=== PATIENT | female | born 1930 | race Caucasian/White ===

== ENCOUNTER 2017-05-08 11:39 | Emergency (ER) | payer OTHER ==
[~2017-05-08] VITALS: Ht 175.3 cm; Wt 90.0 kg
[~2017-05-08 11:39] MED LIST: ABILIFY2 MG PO; ARIPIPRAZOLE2 MG PO; AUGMENTIN875 MG PO; CEFTIN500 MG PO; CIPRO500 MG PO; CLEOCIN300 MG PO; COLACE100 MG PO; COREG3.125 M1 PO; DULCOLAX5 MG PO; FISH OIL300 MG PO; FLEET ENEMA-AD118 ML PR; GLIPIZIDE10 M1 PO; LASIX20 MG PO; LASIX40 MG PO; LIPITOR10 MG PO; LIPITOR20 MG PO; METFORMIN HCL500 MG PO; MICRO-K,K-DUR,10 MEQ PO; MIRALAX17 GM PO; MIRALAX255 GM PO; OMEGA 3 1,0001 EACH PO; PAROXETINE HC37.5 MG PO; PAROXETINE HCL25 MG PO; PAXIL CR12.5 MG PO; PAXIL CR25 MG PO; PERCOCET 5/31 TABLET PO; PRADAXA150 MG PO; PROMETHAZINE HC25 M1 PO; STOOL SOFTENER1 EAC1 PO; TRAMADOL HCL50 MG PO; XARELTO15 MG PO; ZESTRIL,PRINIVI40 MG PO; ZOFRAN4 MG PO
[2017-05-08 13:26] LABS: BASOPHIL (%) 0.1 % (0-1); EOSINOPHIL (%) 0.6 % (0-5); HEMATOCRIT 34.2 % (36.0-46.0); HEMOGLOBIN 10.3 G/DL (11.9-15.5); IMMATURE GRANULOCYTE (%) 0.4 % (0.0-0.7); LYMPHOCYTE (%) 5.3 % (15-42); LYMPHOCYTE COUNT 0.4 K/uL (1.0-2.8); MCH 23.7 PG (29.0-34.0); MCHC 30.1 G/DL (30.0-36.0); MCV 78.6 FL (83-99); MONOCYTE (%) 4.9 % (3-12); MONOCYTE COUNT 0.4 K/uL (0-0.8); NEUTROPHIL (%) 88.7 % (45-76); NEUTROPHIL COUNT 6.3 K/uL (1.8-6.4); PLATELET COUNT 152 K/uL (156-360); RBC DIS.WIDTH-CV 18.1 % (11.8-14.6); RBC DIS.WIDTH-SD 51.2 % (39-53); RED BLOOD COUNT 4.35 M/uL (3.80-5.20); WHITE BLOOD COUNT 7.2 K/uL (4.1-10.2)
[2017-05-08 13:39] LABS: CHLORIDE 102 mEq/L (99-109); POTASSIUM 3.7 mEq/L (3.7-5.4); SODIUM 138 mEq/L (136-147)
[2017-05-08 13:40] LABS: GLUCOSE 122 mg/dL (70-99)
[2017-05-08 13:44] LABS: CREATININE 0.8 mg/dL (0.6-1.3); GFR ESTIMATE (CALCULATED) > 59 mL/min/
[2017-05-08 13:45] LABS: UREA NITROGEN (BUN) 14 mg/dL (9-23)
[2017-05-08 13:58] LABS: APPEARANCE CLEAR ((CLEAR)); BILIRUBIN NEGATIVE; BLOOD NEGATIVE; COLOR YELLOW ((YELLOW)); GLUCOSE (STRIP) NEGATIVE; KETONES NEGATIVE; LEUKOCYTES NEGATIVE; NITRITE NEGATIVE; PROTEIN (STRIP) NEGATIVE; SPECIFIC GRAVITY 1.008 (1.000-1.030)
[2017-05-08 14:29] VITALS: BP 105/67
== END 2017-05-08 14:32 | disposition home or self-care (01) ==
LOC: EME 11:39
PROVIDERS: Emergency Medicine
DX: S30.0XXA Contusion of lower back and pelvis, initial encounter (principal); W18.2XXA Fall in (into) shower or empty bathtub, initial encounter; Y92.002 Bathroom of unspecified non-institutional (private) residence as the place of occurrence of the external cause; M54.2 Cervicalgia; F03.90 Unspecified dementia, unspecified severity, without behavioral disturbance, psychotic disturbance, mood disturbance, and anxiety; E11.9 Type 2 diabetes mellitus without complications; Z79.84 Long term (current) use of oral hypoglycemic drugs; E78.5 Hyperlipidemia, unspecified; I10 Essential (primary) hypertension; F32.9 Major depressive disorder, single episode, unspecified; K21.9 Gastro-esophageal reflux disease without esophagitis; Z95.2 Presence of prosthetic heart valve; Z86.718 Personal history of other venous thrombosis and embolism
CPT/HCPCS: 70450; 71045; 72125; 72131; 80048; 81003; 85025; 93005; 99281; 99285

== ENCOUNTER 2017-06-22 10:56 | Emergency (ER) | payer OTHER ==
[~2017-06-22] VITALS: Ht 154.9 cm; Wt 93.1 kg
[2017-06-22 12:00] LABS: APPEARANCE CLEAR ((CLEAR)); BILIRUBIN NEGATIVE; BLOOD NEGATIVE; COLOR STRAW ((YELLOW)); GLUCOSE (STRIP) NEGATIVE; KETONES NEGATIVE; LEUKOCYTES NEGATIVE; NITRITE NEGATIVE; PROTEIN (STRIP) NEGATIVE; SPECIFIC GRAVITY 1.006 (1.000-1.030); UCUL ADDED? NO; UROBILINOGEN 0.2 MG/DL (0.2-1.0)
[2017-06-22 12:06] LABS: BASOPHIL (%) 0.2 % (0-1); EOSINOPHIL (%) 1.4 % (0-5); EOSINOPHIL COUNT 0.1 K/uL (0-0.3); HEMATOCRIT 34.4 % (36.0-46.0); HEMOGLOBIN 10.5 G/DL (11.9-15.5); IMMATURE GRANULOCYTE (%) 0.4 % (0.0-0.7); LYMPHOCYTE (%) 11.4 % (15-42); LYMPHOCYTE COUNT 0.6 K/uL (1.0-2.8); MCHC 30.5 G/DL (30.0-36.0); MCV 78.5 FL (83-99); MONOCYTE (%) 6.2 % (3-12); MONOCYTE COUNT 0.3 K/uL (0-0.8); NEUTROPHIL (%) 80.4 % (45-76); NEUTROPHIL COUNT 4.2 K/uL (1.8-6.4); PLATELET COUNT 150 K/uL (156-360); RBC DIS.WIDTH-CV 18.4 % (11.8-14.6); RBC DIS.WIDTH-SD 52.1 % (39-53); RED BLOOD COUNT 4.38 M/uL (3.80-5.20); WHITE BLOOD COUNT 5.2 K/uL (4.1-10.2)
[2017-06-22 12:17] LABS: CHLORIDE 100 mEq/L (99-109); POTASSIUM 3.7 mEq/L (3.7-5.4); SODIUM 139 mEq/L (136-147)
[2017-06-22 12:19] LABS: GLUCOSE 112 mg/dL (70-99)
[2017-06-22 12:20] LABS: TOTAL PROTEIN 6.6 g/dL (6.4-8.3)
[2017-06-22 12:21] LABS: TOTAL BILIRUBIN 1.3 mg/dL (0.0-1.0)
[2017-06-22 12:23] LABS: ALKALINE PHOSPHATASE 99 IU/L (3-129); CREATININE 0.8 mg/dL (0.6-1.3); GFR ESTIMATE (CALCULATED) > 59 mL/min/
[2017-06-22 12:24] LABS: UREA NITROGEN (BUN) 16 mg/dL (9-23)
[2017-06-22 12:25] LABS: AST (GOT) 20 IU/L (2-34)
[2017-06-22 12:26] LABS: ALT (GPT) 13 IU/L (3-49)
[2017-06-22 12:27] LABS: TROP-I INTERPRETATION NEGATIVE; TROPONIN-I 0.01 ng/mL (0.0-0.30)
[2017-06-22 16:37] VITALS: BP 131/57
== END 2017-06-22 16:38 | disposition home or self-care (01) ==
LOC: EME 10:56
PROVIDERS: Emergency Medicine
DX: R53.1 Weakness (principal); F32.9 Major depressive disorder, single episode, unspecified; F03.90 Unspecified dementia, unspecified severity, without behavioral disturbance, psychotic disturbance, mood disturbance, and anxiety; R35.0 Frequency of micturition; I51.7 Cardiomegaly; I48.91 Unspecified atrial fibrillation; I10 Essential (primary) hypertension; E78.5 Hyperlipidemia, unspecified; E11.9 Type 2 diabetes mellitus without complications; Z79.84 Long term (current) use of oral hypoglycemic drugs; Z95.2 Presence of prosthetic heart valve; Z86.711 Personal history of pulmonary embolism
CPT/HCPCS: 70450; 71046; 80053; 81003; 84484; 85025; 90839; 93005; 99281; 99285

== ENCOUNTER 2017-06-28 11:19 | Emergency (ER) | payer OTHER ==
[~2017-06-28] VITALS: Ht 165.1 cm; Wt 89.0 kg
[2017-06-28 12:08] LABS: BASOPHIL (%) 0.2 % (0-1); EOSINOPHIL (%) 1.2 % (0-5); EOSINOPHIL COUNT 0.1 K/uL (0-0.3); HEMATOCRIT 37.2 % (36.0-46.0); HEMOGLOBIN 11.5 G/DL (11.9-15.5); IMMATURE GRANULOCYTE (%) 0.3 % (0.0-0.7); LYMPHOCYTE (%) 9.7 % (15-42); LYMPHOCYTE COUNT 0.6 K/uL (1.0-2.8); MCH 23.9 PG (29.0-34.0); MCHC 30.9 G/DL (30.0-36.0); MCV 77.2 FL (83-99); MONOCYTE (%) 6.7 % (3-12); MONOCYTE COUNT 0.4 K/uL (0-0.8); NEUTROPHIL (%) 81.9 % (45-76); NEUTROPHIL COUNT 4.8 K/uL (1.8-6.4); PLATELET COUNT 169 K/uL (156-360); RBC DIS.WIDTH-CV 18.3 % (11.8-14.6); RBC DIS.WIDTH-SD 50.3 % (39-53); RED BLOOD COUNT 4.82 M/uL (3.80-5.20); WHITE BLOOD COUNT 5.8 K/uL (4.1-10.2)
[2017-06-28 12:16] LABS: ALBUMIN 4.2 g/dL (3.2-4.8); CHLORIDE 96 mEq/L (99-109); POTASSIUM 3.3 mEq/L (3.7-5.4); SODIUM 139 mEq/L (136-147)
[2017-06-28 12:17] LABS: MAGNESIUM 2.1 mg/dL (1.3-2.7)
[2017-06-28 12:18] LABS: GLUCOSE 112 mg/dL (70-99); INTER. NORMALIZED RATIO 1.2; TOTAL PROTEIN 6.9 g/dL (6.4-8.3)
[2017-06-28 12:20] LABS: TOTAL BILIRUBIN 1.4 mg/dL (0.0-1.0)
[2017-06-28 12:21] LABS: PTT 28.7 SEC (25-37)
[2017-06-28 12:22] LABS: ALKALINE PHOSPHATASE 96 IU/L (3-129); CREATININE 0.8 mg/dL (0.6-1.3); GFR ESTIMATE (CALCULATED) > 59 mL/min/
[2017-06-28 12:23] LABS: UREA NITROGEN (BUN) 20 mg/dL (9-23)
[2017-06-28 12:28] LABS: TROP-I INTERPRETATION NEGATIVE; TROPONIN-I 0.03 ng/mL (0.0-0.30)
[2017-06-28 12:30] LABS: ALT (GPT) 13 IU/L (3-49); AST (GOT) 22 IU/L (2-34)
[2017-06-28 13:35] LABS: APPEARANCE CLOUDY ((CLEAR)); BILIRUBIN NEGATIVE; BLOOD NEGATIVE; COLOR YELLOW ((YELLOW)); GLUCOSE (STRIP) NEGATIVE; KETONES NEGATIVE; LEUKOCYTES NEGATIVE; NITRITE NEGATIVE; PROTEIN (STRIP) NEGATIVE; SPECIFIC GRAVITY 1.011 (1.000-1.030); UROBILINOGEN 0.2 MG/DL (0.2-1.0)
[2017-06-28 13:48] LABS: THYROTROPIN (TSH) 2.9 MIU/L (0.4-5.5)
[2017-06-28 14:20] LABS: BACTERIA 2+ /HPF; EPITHELIAL CELLS 3+ /HPF; MUCUS NONE SEEN /LPF; RED BLOOD CELLS RARE /HPF (0-5); UCUL ADDED? YES
[2017-06-28 18:18] VITALS: BP 141/77
== END 2017-06-28 18:52 | disposition home or self-care (01) ==
LOC: EME 11:19
PROVIDERS: Emergency Medicine
DX: G30.9 Alzheimer's disease, unspecified (principal); F02.80 Dementia in other diseases classified elsewhere, unspecified severity, without behavioral disturbance, psychotic disturbance, mood disturbance, and anxiety; I48.91 Unspecified atrial fibrillation; I45.4 Nonspecific intraventricular block; R94.31 Abnormal electrocardiogram [ECG] [EKG]; E11.9 Type 2 diabetes mellitus without complications; I10 Essential (primary) hypertension; E78.5 Hyperlipidemia, unspecified; K21.9 Gastro-esophageal reflux disease without esophagitis; F32.9 Major depressive disorder, single episode, unspecified; Z79.84 Long term (current) use of oral hypoglycemic drugs; Z86.718 Personal history of other venous thrombosis and embolism; Z95.2 Presence of prosthetic heart valve; Z88.6 Allergy status to analgesic agent
CPT/HCPCS: 70450; 71045; 80053; 81003; 83735; 84439; 84443; 84484; 85025; 85610; 85730; 87086; 90832; 93005; 99281; 99285

== ENCOUNTER 2017-07-13 06:58 | Emergency (ER) | payer OTHER ==
[~2017-07-13] VITALS: Ht 165.1 cm; Wt 88.0 kg
[2017-07-13 07:28] LABS: HEMATOCRIT 35.1 % (36.0-46.0); MCH 24.6 PG (29.0-34.0); MCHC 31.3 G/DL (30.0-36.0); MCV 78.3 FL (83-99); PLATELET COUNT 139 K/uL (156-360); RBC DIS.WIDTH-CV 18.1 % (11.8-14.6); RBC DIS.WIDTH-SD 50.4 % (39-53); RED BLOOD COUNT 4.48 M/uL (3.80-5.20); WHITE BLOOD COUNT 5.3 K/uL (4.1-10.2)
[2017-07-13 07:57] LABS: CHLORIDE 98 MEQ/L (99-109); CREATININE 0.7 MG/DL (0.6-1.3); GFR ESTIMATE (CALCULATED) > 59 mL/min/; GLUCOSE 167 mg/dL (70-99); POTASSIUM 3.5 MEQ/L (3.7-5.4); SODIUM 139 MEQ/L (136-147); UREA NITROGEN (BUN) 13 mg/dL (9-23)
[2017-07-13 09:01] LABS: APPEARANCE CLEAR ((CLEAR)); BILIRUBIN NEGATIVE; BLOOD NEGATIVE; COLOR YELLOW ((YELLOW)); GLUCOSE (STRIP) NEGATIVE; KETONES NEGATIVE; LEUKOCYTES NEGATIVE; NITRITE NEGATIVE; PROTEIN (STRIP) NEGATIVE; SPECIFIC GRAVITY 1.018 (1.000-1.030); UCUL ADDED? NO
[2017-07-13 12:25] VITALS: BP 147/83
== END 2017-07-13 12:25 | disposition home or self-care (01) ==
LOC: EME 06:58
PROVIDERS: Emergency Medicine
DX: F03.90 Unspecified dementia, unspecified severity, without behavioral disturbance, psychotic disturbance, mood disturbance, and anxiety (principal); L89.92 Pressure ulcer of unspecified site, stage 2; E11.65 Type 2 diabetes mellitus with hyperglycemia; K62.89 Other specified diseases of anus and rectum; R10.9 Unspecified abdominal pain; G89.29 Other chronic pain; I10 Essential (primary) hypertension; E78.5 Hyperlipidemia, unspecified; Z95.2 Presence of prosthetic heart valve; Z86.718 Personal history of other venous thrombosis and embolism; Z79.84 Long term (current) use of oral hypoglycemic drugs
CPT/HCPCS: 74019; 80048; 81003; 85027; 99281; 99284

== ENCOUNTER 2017-07-24 09:03 | Emergency (ER) | payer OTHER ==
[~2017-07-24] VITALS: Ht 162.6 cm; Wt 91.2 kg
[2017-07-24 10:15] LABS: BASOPHIL (%) 0.2 % (0-1); EOSINOPHIL (%) 2.2 % (0-5); EOSINOPHIL COUNT 0.1 K/uL (0-0.3); HEMATOCRIT 34.2 % (36.0-46.0); HEMOGLOBIN 10.8 G/DL (11.9-15.5); IMMATURE GRANULOCYTE (%) 0.5 % (0.0-0.7); LYMPHOCYTE (%) 12.8 % (15-42); LYMPHOCYTE COUNT 0.5 K/uL (1.0-2.8); MCH 24.9 PG (29.0-34.0); MCHC 31.6 G/DL (30.0-36.0); MONOCYTE (%) 5.2 % (3-12); MONOCYTE COUNT 0.2 K/uL (0-0.8); NEUTROPHIL (%) 79.1 % (45-76); NEUTROPHIL COUNT 3.2 K/uL (1.8-6.4); PLATELET COUNT 149 K/uL (156-360); RBC DIS.WIDTH-CV 18.6 % (11.8-14.6); RBC DIS.WIDTH-SD 53.4 % (39-53); RED BLOOD COUNT 4.33 M/uL (3.80-5.20); WHITE BLOOD COUNT 4.1 K/uL (4.1-10.2)
[2017-07-24 10:24] LABS: CHLORIDE 100 mEq/L (99-109); POTASSIUM 4.3 mEq/L (3.7-5.4); SODIUM 137 mEq/L (136-147)
[2017-07-24 10:26] LABS: GLUCOSE 174 mg/dL (70-99)
[2017-07-24 10:30] LABS: CREATININE 0.7 mg/dL (0.6-1.3); GFR ESTIMATE (CALCULATED) > 59 mL/min/
[2017-07-24 10:31] LABS: UREA NITROGEN (BUN) 7 mg/dL (9-23)
[2017-07-24] MEDS ORDERED: MIRALAX17 GM PO (12:16)
[2017-07-24 14:03] VITALS: BP 132/53
== END 2017-07-24 14:04 | disposition home or self-care (01) ==
LOC: EME 09:03
PROVIDERS: Emergency Medicine
DX: K59.00 Constipation, unspecified (principal); E11.9 Type 2 diabetes mellitus without complications; I10 Essential (primary) hypertension; K21.9 Gastro-esophageal reflux disease without esophagitis; E78.5 Hyperlipidemia, unspecified; F03.90 Unspecified dementia, unspecified severity, without behavioral disturbance, psychotic disturbance, mood disturbance, and anxiety; F31.9 Bipolar disorder, unspecified; F32.9 Major depressive disorder, single episode, unspecified; Z79.84 Long term (current) use of oral hypoglycemic drugs; Z79.891 Long term (current) use of opiate analgesic; Z86.718 Personal history of other venous thrombosis and embolism; Z95.2 Presence of prosthetic heart valve; Z88.5 Allergy status to narcotic agent
CPT/HCPCS: 74022; 80048; 85025; 99281; 99284

== ENCOUNTER 2017-07-28 08:42 | Emergency (ER) | payer OTHER ==
[~2017-07-28] VITALS: Ht 172.7 cm; Wt 88.8 kg
[2017-07-28 09:26] LABS: BASOPHIL (%) 0.2 % (0-1); EOSINOPHIL (%) 1.4 % (0-5); EOSINOPHIL COUNT 0.1 K/uL (0-0.3); HEMATOCRIT 34.7 % (36.0-46.0); HEMOGLOBIN 11.2 G/DL (11.9-15.5); IMMATURE GRANULOCYTE (%) 0.6 % (0.0-0.7); LYMPHOCYTE (%) 13.9 % (15-42); LYMPHOCYTE COUNT 0.7 K/uL (1.0-2.8); MCH 25.3 PG (29.0-34.0); MCHC 32.3 G/DL (30.0-36.0); MCV 78.5 FL (83-99); MONOCYTE (%) 5.8 % (3-12); MONOCYTE COUNT 0.3 K/uL (0-0.8); NEUTROPHIL (%) 78.1 % (45-76); NEUTROPHIL COUNT 3.9 K/uL (1.8-6.4); PLATELET COUNT 151 K/uL (156-360); RBC DIS.WIDTH-CV 18.7 % (11.8-14.6); RBC DIS.WIDTH-SD 52.7 % (39-53); RED BLOOD COUNT 4.42 M/uL (3.80-5.20)
[2017-07-28 09:40] LABS: CHLORIDE 99 mEq/L (99-109); POTASSIUM 4.4 mEq/L (3.7-5.4); SODIUM 136 mEq/L (136-147)
[2017-07-28 09:42] LABS: GLUCOSE 130 mg/dL (70-99)
[2017-07-28 09:46] LABS: CREATININE 0.7 mg/dL (0.6-1.3); GFR ESTIMATE (CALCULATED) > 59 mL/min/
[2017-07-28 09:47] LABS: UREA NITROGEN (BUN) 11 mg/dL (9-23)
[2017-07-28 10:06] LABS: APPEARANCE SL.HAZY ((CLEAR)); BILIRUBIN NEGATIVE; BLOOD NEGATIVE; COLOR YELLOW ((YELLOW)); GLUCOSE (STRIP) NEGATIVE; KETONES NEGATIVE; LEUKOCYTES TRACE; NITRITE NEGATIVE; PROTEIN (STRIP) 30; SPECIFIC GRAVITY 1.016 (1.000-1.030)
[2017-07-28 10:10] LABS: BACTERIA RARE /HPF; EPITHELIAL CELLS RARE /HPF; MUCUS TRACE /LPF; RED BLOOD CELLS 0-5 /HPF (0-5); WHITE BLOOD CELLS 0-5 /HPF (0-5)
[2017-07-28 16:59] VITALS: BP 120/63
== END 2017-07-28 17:08 | disposition home or self-care (01) ==
LOC: EME 08:42
PROVIDERS: Emergency Medicine
DX: L89.329 Pressure ulcer of left buttock, unspecified stage (principal); L89.319 Pressure ulcer of right buttock, unspecified stage; E11.9 Type 2 diabetes mellitus without complications; Z79.84 Long term (current) use of oral hypoglycemic drugs; F03.90 Unspecified dementia, unspecified severity, without behavioral disturbance, psychotic disturbance, mood disturbance, and anxiety; E78.5 Hyperlipidemia, unspecified; I10 Essential (primary) hypertension; F32.9 Major depressive disorder, single episode, unspecified; K21.9 Gastro-esophageal reflux disease without esophagitis; Z95.2 Presence of prosthetic heart valve
CPT/HCPCS: 71045; 80048; 81003; 85025; 93005; 99281; 99284

== ENCOUNTER 2017-08-24 08:53 | Emergency (ER) | payer OTHER ==
[~2017-08-24] VITALS: Ht 162.6 cm; Wt 90.9 kg
[2017-08-24 09:43] LABS: APPEARANCE CLEAR ((CLEAR)); BILIRUBIN NEGATIVE; BLOOD NEGATIVE; COLOR YELLOW ((YELLOW)); GLUCOSE (STRIP) 50; KETONES NEGATIVE; LEUKOCYTES NEGATIVE; NITRITE NEGATIVE; PROTEIN (STRIP) NEGATIVE; SPECIFIC GRAVITY 1.012 (1.000-1.030); UCUL ADDED? NO
[2017-08-24 10:03] LABS: HEMOGLOBIN 10.8 G/DL (11.9-15.5); MCHC 31.8 G/DL (30.0-36.0); MCV 81.7 FL (83-99); NRBC (%) 0.3 /100 WBC (0-0); PLATELET COUNT 145 K/uL (156-360); RBC DIS.WIDTH-SD 53.6 % (39-53); RED BLOOD COUNT 4.16 M/uL (3.80-5.20); WHITE BLOOD COUNT 5.8 K/uL (4.1-10.2)
[2017-08-24 10:17] LABS: ALBUMIN 3.8 g/dL (3.2-4.8); CHLORIDE 100 mEq/L (99-109); SODIUM 139 mEq/L (136-147)
[2017-08-24 10:19] LABS: GLUCOSE 156 mg/dL (70-99); TOTAL PROTEIN 5.9 g/dL (6.4-8.3)
[2017-08-24 10:23] LABS: ALKALINE PHOSPHATASE 100 IU/L (3-129); CREATININE 0.7 mg/dL (0.6-1.3); GFR ESTIMATE (CALCULATED) > 59 mL/min/
[2017-08-24 10:24] LABS: AST (GOT) 24 IU/L (2-34); UREA NITROGEN (BUN) 10 mg/dL (9-23)
[2017-08-24 10:26] LABS: ALT (GPT) 16 IU/L (3-49)
[2017-08-24] MEDS ORDERED: MIRALAX17 GM PO (12:48)
[2017-08-24 17:00] VITALS: BP 118/50
== END 2017-08-24 17:35 | disposition home or self-care (01) ==
LOC: EME 08:53
PROVIDERS: Nurse Practitioner Acute Care
DX: K59.00 Constipation, unspecified (principal); I48.91 Unspecified atrial fibrillation; I45.4 Nonspecific intraventricular block; R94.31 Abnormal electrocardiogram [ECG] [EKG]; I10 Essential (primary) hypertension; E11.9 Type 2 diabetes mellitus without complications; K21.9 Gastro-esophageal reflux disease without esophagitis; E78.5 Hyperlipidemia, unspecified; F03.90 Unspecified dementia, unspecified severity, without behavioral disturbance, psychotic disturbance, mood disturbance, and anxiety; F32.9 Major depressive disorder, single episode, unspecified; F31.9 Bipolar disorder, unspecified; Z79.84 Long term (current) use of oral hypoglycemic drugs; Z79.891 Long term (current) use of opiate analgesic; Z95.2 Presence of prosthetic heart valve; Z86.718 Personal history of other venous thrombosis and embolism; Z88.5 Allergy status to narcotic agent
CPT/HCPCS: 74176; 80053; 81003; 85027; 93005; 99281; 99285

== ENCOUNTER 2017-09-27 10:33 | Emergency (ER) | payer OTHER ==
[~2017-09-27] VITALS: Ht 162.6 cm; Wt 91.3 kg
[2017-09-27 11:06] LABS: BASOPHIL (%) 0.4 % (0-1); EOSINOPHIL COUNT 0.1 K/uL (0-0.3); HEMATOCRIT 30.2 % (36.0-46.0); HEMOGLOBIN 9.6 G/DL (11.9-15.5); IMMATURE GRANULOCYTE (%) 0.6 % (0.0-0.7); LYMPHOCYTE (%) 9.7 % (15-42); LYMPHOCYTE COUNT 0.5 K/uL (1.0-2.8); MCH 26.2 PG (29.0-34.0); MCHC 31.8 G/DL (30.0-36.0); MCV 82.5 FL (83-99); MONOCYTE (%) 6.1 % (3-12); MONOCYTE COUNT 0.3 K/uL (0-0.8); NEUTROPHIL (%) 82.2 % (45-76); NEUTROPHIL COUNT 4.3 K/uL (1.8-6.4); PLATELET COUNT 145 K/uL (156-360); RBC DIS.WIDTH-CV 16.1 % (11.8-14.6); RBC DIS.WIDTH-SD 48.8 % (39-53); RED BLOOD COUNT 3.66 M/uL (3.80-5.20); WHITE BLOOD COUNT 5.3 K/uL (4.1-10.2)
[2017-09-27 11:16] LABS: CHLORIDE 99 mEq/L (99-109); POTASSIUM 3.7 mEq/L (3.7-5.4); SODIUM 137 mEq/L (136-147)
[2017-09-27 11:18] LABS: GLUCOSE 140 mg/dL (70-99)
[2017-09-27 11:22] LABS: CREATININE 0.7 mg/dL (0.6-1.3); GFR ESTIMATE (CALCULATED) > 59 mL/min/
[2017-09-27 11:23] LABS: UREA NITROGEN (BUN) 8 mg/dL (9-23)
[2017-09-27] MEDS ORDERED: CLEOCIN300 MG PO (13:25)
[2017-09-27 17:00] VITALS: BP 136/83
== END 2017-09-27 17:00 | disposition home or self-care (01) ==
LOC: EME 10:33
PROVIDERS: Emergency Medicine
DX: L03.116 Cellulitis of left lower limb (principal); L03.115 Cellulitis of right lower limb; L97.929 Non-pressure chronic ulcer of unspecified part of left lower leg with unspecified severity; L97.919 Non-pressure chronic ulcer of unspecified part of right lower leg with unspecified severity; I87.2 Venous insufficiency (chronic) (peripheral); R41.0 Disorientation, unspecified; E11.9 Type 2 diabetes mellitus without complications; F03.90 Unspecified dementia, unspecified severity, without behavioral disturbance, psychotic disturbance, mood disturbance, and anxiety; I10 Essential (primary) hypertension; E78.5 Hyperlipidemia, unspecified; Z79.84 Long term (current) use of oral hypoglycemic drugs; Z86.718 Personal history of other venous thrombosis and embolism; Z95.2 Presence of prosthetic heart valve
CPT/HCPCS: 80048; 82948; 85025; 99281; 99284; A6212; A6260

== ENCOUNTER 2017-10-05 13:37 | Emergency (ER) | payer OTHER ==
[~2017-10-05] VITALS: Ht 165.1 cm; Wt 92.0 kg
[2017-10-05 14:34] LABS: HEMATOCRIT 30.3 % (36.0-46.0); HEMOGLOBIN 9.6 G/DL (11.9-15.5); MCH 26.2 PG (29.0-34.0); MCHC 31.7 G/DL (30.0-36.0); MCV 82.6 FL (83-99); PLATELET COUNT 173 K/uL (156-360); RBC DIS.WIDTH-CV 15.9 % (11.8-14.6); RBC DIS.WIDTH-SD 47.8 % (39-53); RED BLOOD COUNT 3.67 M/uL (3.80-5.20); WHITE BLOOD COUNT 5.4 K/uL (4.1-10.2)
[2017-10-05 14:44] LABS: CHLORIDE 99 mEq/L (99-109); POTASSIUM 3.3 mEq/L (3.7-5.4); SODIUM 138 mEq/L (136-147)
[2017-10-05 14:46] LABS: GLUCOSE 163 mg/dL (70-99)
[2017-10-05 14:49] LABS: CREATININE 0.7 mg/dL (0.6-1.3); GFR ESTIMATE (CALCULATED) > 59 mL/min/
[2017-10-05 14:50] LABS: UREA NITROGEN (BUN) 12 mg/dL (9-23)
[2017-10-05 14:55] LABS: TROP-I INTERPRETATION NEGATIVE; TROPONIN-I 0.02 ng/mL (0.0-0.30)
[2017-10-05 18:30] VITALS: BP 107/67
== END 2017-10-05 19:09 | disposition home or self-care (01) ==
LOC: EME 13:37
PROVIDERS: Emergency Medicine
DX: S00.01XA Abrasion of scalp, initial encounter (principal); W18.30XA Fall on same level, unspecified, initial encounter; Y92.009 Unspecified place in unspecified non-institutional (private) residence as the place of occurrence of the external cause; E11.9 Type 2 diabetes mellitus without complications; Z79.84 Long term (current) use of oral hypoglycemic drugs; I10 Essential (primary) hypertension; E78.5 Hyperlipidemia, unspecified; K21.9 Gastro-esophageal reflux disease without esophagitis; F03.90 Unspecified dementia, unspecified severity, without behavioral disturbance, psychotic disturbance, mood disturbance, and anxiety; F31.9 Bipolar disorder, unspecified; F32.9 Major depressive disorder, single episode, unspecified; Z86.718 Personal history of other venous thrombosis and embolism; Z95.2 Presence of prosthetic heart valve; Z88.8 Allergy status to other drugs, medicaments and biological substances
CPT/HCPCS: 70450; 71046; 72100; 72170; 80048; 84484; 85027; 93005; 99281; 99284; G8978 CL; G8979 CJ; G8980 GP CL; J7030

== ENCOUNTER 2017-10-10 11:19 | Inpatient (IN) | payer OTHER ==
[~2017-10-10] VITALS: Ht 157.5 cm; Wt 90.3 kg
[2017-10-10 12:58] LABS: HEMATOCRIT 32.5 % (36.0-46.0); HEMOGLOBIN 10.2 G/DL (11.9-15.5); MCH 25.8 PG (29.0-34.0); MCHC 31.4 G/DL (30.0-36.0); MCV 82.3 FL (83-99); PLATELET COUNT 161 K/uL (156-360); RBC DIS.WIDTH-CV 15.9 % (11.8-14.6); RBC DIS.WIDTH-SD 47.5 % (39-53); RED BLOOD COUNT 3.95 M/uL (3.80-5.20); WHITE BLOOD COUNT 5.1 K/uL (4.1-10.2)
[2017-10-10 13:14] LABS: ALBUMIN 4.1 g/dL (3.2-4.8); CHLORIDE 97 mEq/L (99-109); POTASSIUM 3.5 mEq/L (3.7-5.4); SODIUM 139 mEq/L (136-147)
[2017-10-10 13:16] LABS: GLUCOSE 146 mg/dL (70-99); TOTAL PROTEIN 7.1 g/dL (6.4-8.3)
[2017-10-10 13:18] LABS: TOTAL BILIRUBIN 1.3 mg/dL (0.0-1.0)
[2017-10-10 13:20] LABS: ALKALINE PHOSPHATASE 115 IU/L (3-129); CREATININE 0.8 mg/dL (0.6-1.3); GFR ESTIMATE (CALCULATED) > 59 mL/min/
[2017-10-10 13:21] LABS: UREA NITROGEN (BUN) 13 mg/dL (9-23)
[2017-10-10 13:22] LABS: AST (GOT) 24 IU/L (2-34)
[2017-10-10 13:23] LABS: ALT (GPT) 16 IU/L (3-49)
[2017-10-10 13:29] LABS: INTER. NORMALIZED RATIO 1.3
[2017-10-10 13:32] LABS: PTT 29.2 SEC (25-37)
[2017-10-10 14:24] LABS: APPEARANCE CLOUDY ((CLEAR)); BILIRUBIN NEGATIVE; BLOOD NEGATIVE; COLOR YELLOW ((YELLOW)); GLUCOSE (STRIP) NEGATIVE; KETONES NEGATIVE; LEUKOCYTES NEGATIVE; NITRITE NEGATIVE; PROTEIN (STRIP) NEGATIVE; SPECIFIC GRAVITY 1.005 (1.000-1.030); UROBILINOGEN 0.2 MG/DL (0.2-1.0)
[2017-10-10 14:30] LABS: BACTERIA 1+ /HPF; EPITHELIAL CELLS RARE /HPF; MUCUS TRACE /LPF; RED BLOOD CELLS 0-5 /HPF (0-5); WHITE BLOOD CELLS NONE SEEN /HPF (0-5)
[2017-10-10] MEDS ORDERED: MIRALAX119 GM PO (16:15)
[2017-10-10] MEDS ORDERED: OMEPRAZOLE20 MG PO (16:16)
[2017-10-10] MEDS ORDERED: ARICEPT10 MG PO (16:16)
[2017-10-10] MEDS ORDERED: KLOR-CON 1010 ME1 PO (16:18)
[2017-10-10] MEDS ORDERED: SSD25GM TP (16:18)
[2017-10-10] MEDS ORDERED: BUSPAR7.5 MG PO (16:20)
[2017-10-10] MEDS ORDERED: CEPHALEXIN500 MG PO (16:20)
[2017-10-10] MEDS ORDERED: GABAPENTIN100 MG PO (16:20)
[2017-10-10 18:15] VITALS: BP 145/88
[2017-10-10 19:59] VITALS: BP 132/69
[2017-10-11 00:07] VITALS: BP 132/68
[2017-10-11 04:04] VITALS: BP 108/62
[2017-10-11 05:51] LABS: HEMATOCRIT 29.1 % (36.0-46.0); HEMOGLOBIN 8.8 G/DL (11.9-15.5); MCH 24.9 PG (29.0-34.0); MCHC 30.2 G/DL (30.0-36.0); MCV 82.4 FL (83-99); PLATELET COUNT 150 K/uL (156-360); RBC DIS.WIDTH-SD 48.2 % (39-53); RED BLOOD COUNT 3.53 M/uL (3.80-5.20); WHITE BLOOD COUNT 4.5 K/uL (4.1-10.2)
[2017-10-11 06:28] LABS: CHLORIDE 99 MEQ/L (99-109); CREATININE 0.7 MG/DL (0.6-1.3); GFR ESTIMATE (CALCULATED) > 59 mL/min/; GLUCOSE 110 mg/dL (70-99); POTASSIUM 3.5 MEQ/L (3.7-5.4); SODIUM 139 MEQ/L (136-147); UREA NITROGEN (BUN) 13 mg/dL (9-23)
[2017-10-11 07:41] VITALS: BP 123/69
[2017-10-11 11:59] VITALS: BP 142/64
[2017-10-11 12:57] LABS: HEMATOCRIT 30.3 % (36.0-46.0); HEMOGLOBIN 9.4 G/DL (11.9-15.5)
[2017-10-11 15:17] VITALS: BP 124/58
[2017-10-11 16:31] LABS: HEMOGLOBIN A1c (GLYCOHEMOGLOB) 6.3 % (Below 5.7)
[2017-10-11 19:43] VITALS: BP 129/56
[2017-10-12 00:47] VITALS: BP 122/67
[2017-10-12 04:14] VITALS: BP 123/56
[2017-10-12 06:20] LABS: HEMOGLOBIN 9.1 G/DL (11.9-15.5); MCH 24.9 PG (29.0-34.0); MCHC 30.3 G/DL (30.0-36.0); PLATELET COUNT 161 K/uL (156-360); RBC DIS.WIDTH-CV 15.9 % (11.8-14.6); RBC DIS.WIDTH-SD 47.9 % (39-53); RED BLOOD COUNT 3.66 M/uL (3.80-5.20); WHITE BLOOD COUNT 3.8 K/uL (4.1-10.2)
[2017-10-12 06:50] LABS: CHLORIDE 98 MEQ/L (99-109); CREATININE 0.6 MG/DL (0.6-1.3); GFR ESTIMATE (CALCULATED) > 59 mL/min/; GLUCOSE 134 mg/dL (70-99); SODIUM 135 MEQ/L (136-147); UREA NITROGEN (BUN) 11 mg/dL (9-23)
[2017-10-12 07:01] VITALS: BP 133/64
[2017-10-12 11:16] VITALS: BP 113/65
[2017-10-12 15:25] VITALS: BP 117/55
[2017-10-12 23:43] VITALS: BP 107/55
[2017-10-13 08:00] VITALS: BP 112/67
[2017-10-13 16:01] VITALS: BP 136/63
[2017-10-14] VITALS: BP 121/58
[2017-10-14 07:37] VITALS: BP 112/72
[2017-10-14 16:15] VITALS: BP 129/60
[2017-10-15] VITALS: BP 110/74
[2017-10-15 07:09] VITALS: BP 127/58
[2017-10-15 15:14] VITALS: BP 118/75
[2017-10-16 07:44] VITALS: BP 128/55
[2017-10-16 15:14] VITALS: BP 125/57
== END 2017-10-16 19:01 | DRG 57 ==
LOC: EME 11:19 → 5SOUTH 15:33 → EDOF 15:33 → ENRESERV 15:34 → 5SOUTH 17:45
PROVIDERS: Emergency Medicine; Hospitalist; Physician Assistant Medical
DX: G30.1 Alzheimer's disease with late onset (principal); F02.80 Dementia in other diseases classified elsewhere, unspecified severity, without behavioral disturbance, psychotic disturbance, mood disturbance, and anxiety; F05 Delirium due to known physiological condition; I48.2 Chronic atrial fibrillation; E11.622 Type 2 diabetes mellitus with other skin ulcer; E11.42 Type 2 diabetes mellitus with diabetic polyneuropathy; L97.819 Non-pressure chronic ulcer of other part of right lower leg with unspecified severity; L97.829 Non-pressure chronic ulcer of other part of left lower leg with unspecified severity; L03.115 Cellulitis of right lower limb; L03.116 Cellulitis of left lower limb; I83.018 Varicose veins of right lower extremity with ulcer other part of lower leg; I83.028 Varicose veins of left lower extremity with ulcer other part of lower leg; D64.9 Anemia, unspecified; K59.00 Constipation, unspecified; W18.30XA Fall on same level, unspecified, initial encounter; Z95.2 Presence of prosthetic heart valve; Z79.84 Long term (current) use of oral hypoglycemic drugs; I10 Essential (primary) hypertension; E87.6 Hypokalemia; K21.9 Gastro-esophageal reflux disease without esophagitis; F32.9 Major depressive disorder, single episode, unspecified; E78.5 Hyperlipidemia, unspecified; F42.9 Obsessive-compulsive disorder, unspecified; E66.9 Obesity, unspecified; Z68.36 Body mass index [BMI] 36.0-36.9, adult; G31.9 Degenerative disease of nervous system, unspecified; Z91.81 History of falling; S50.00XA Contusion of unspecified elbow, initial encounter
CPT/HCPCS: 70450; 72125; 73080; 73502; 80048; 80053; 81003; 82607; 82948; 83036; 85014; 85018; 85027; 85610; 85730; 87086; 95819; 97530 GO; 97530 GP; 99281; 99285; J1644; J1815